=== PATIENT | male | born 1955 | race Two or more races ===

== ENCOUNTER 2024-10-22 09:26 | Emergency (ER) | payer OTHER ==
[2024-10-22 09:32] VITALS: BMI 38.3
[2024-10-22 10:40] LABS: BASO % 0.6 % (0-2.0); EOS % 5.7 % (0-4.5); HEMATOCRIT 48.2 % (35.4-49); HEMOGLOBIN 15.6 GM/dL (11.7-16.9); LYMPH % 36.1 % (8-40); MCH 30.6 pg (25.7-33.7); MCHC 32.3 g/dl (32.0-35.9); MEAN CELL VOLUME 94.6 fl (80-96); MEAN PLT VOLUME 9.3 fl (7.5-11.1); MONO % 4.4 % (3.8-10.2); NEUT % 53.2 % (42.8-82.8); PLATELET COUNT 182 10^3/uL (134-434); RDW 14.5 % (11.9-15.9); WHITE BLOOD COUNT 5.5 K/mm3 (4.0-10.0)
[2024-10-22 10:58] LABS: POTASSIUM 4.3 mmol/L (3.5-5.1)
[2024-10-22 11:01] LABS: ALBUMIN 3.4 g/dl (3.4-5.0); BLOOD UREA NITROGEN 12.7 mg/dL (7-18); CALCIUM 9.4 mg/dL (8.5-10.1)
[2024-10-22 11:06] LABS: BILIRUBIN,TOTAL 0.4 mg/dL (0.2-1); TOT PROT 7.7 g/dl (6.4-8.2)
[2024-10-22 12:34] VITALS: BP 122/75; PULSE 64; RESP 16; TEMP 98
== END 2024-10-22 13:04 | disposition home or self-care (01) ==
LOC: JER 09:26
DX: R07.2 Precordial pain (principal); R06.02 Shortness of breath; Z20.822 Contact with and (suspected) exposure to COVID-19
CPT/HCPCS: 0241U-QW; 36415; 71045-TC-FY; 80053; 82962; 84484; 85025; 93005; 93010; 99285-25